=== PATIENT | female | born 1945 | race Caucasian/White ===

== ENCOUNTER 2020-08-07 18:18 | Inpatient (IN) | payer MEDICARE, OTHER ==
[~2020-08-07] VITALS: Ht 165.1 cm; Wt 99.4 kg
--- NOTE | 2020-08-07 18:27 | NUR ---
PT BIB EMS FOR ABDOMINAL PAIN, W N/V. STARTED TODAY. TENDER TO PALPITATION IN ALL QUADRENTS. DENIES CP OR SOB.
[2020-08-07] MEDS ORDERED: HYDROmorphone 1 MG/ML, 1ML INJ ONE (19:03)
[2020-08-07] MEDS ORDERED: ONDANSETRON 2MG/ML, 2ML ONE (19:03)
--- NOTE | 2020-08-07 19:10 | NUR ---
First contact with patient, pt c/o moderate abd discomfort and active n/v bile. IV patent from field, pt medicated with dilaudid 0.5 and zofran 4mg. Lab here drawing blood. Requested urine sample. POC discussed with patient and she agrees. On cont pulse ox, cr monitor, vss. AIDET provided. Addendum: 08/07/20 at 2245 by MIHAIEELamar 0.5mg dilaudid wasted at time of pull with LEANDER logan.
[2020-08-07 19:22] LABS: BASOPHILS % (AUTO) 0 % (0-1); EOSINOPHILS % (AUTO) 0 % (1-7); LYMPHOCYTES % (AUTO) 8 % (22-44); MEAN CORPUSCULAR HGB CONC 33.2 g/dL (32.4-35.8); MONOCYTES % (AUTO) 6 % (2-9); NEUTROPHILS % (AUTO) 86 % (42-75); PLATELET COUNT 342 x10^3/uL (130-400); RED BLOOD COUNT 4.28 x10^6/uL (3.82-5.3); RED CELL DISTRIBUTION WIDTH 13.6 % (9.6-15.2)
[2020-08-07] MEDS ORDERED: ONDANSETRON 2MG/ML, 2ML IVPush ONE (19:30)
[2020-08-07] MEDS ORDERED: HYDROmorphone 1 MG/ML, 1ML INJ IV ONE (19:30)
[2020-08-07 19:33] LABS: ALBUMIN 3.8 g/dL (3.4-5.0); ANION GAP 9 mmol/L (5-15); CALCIUM 9.3 mg/dL (8.5-10.1); CHLORIDE 114 mmol/L (98-107)
[2020-08-07 19:34] LABS: INTERNATIONAL NORMALIZED RATIO 2.98 (0.93-1.1); PROTHROMBIN TIME 30.3 Seconds (9.6-11.5)
[2020-08-07 19:39] LABS: ALANINE AMINOTRANSFERASE 26 U/L (12-78); ALKALINE PHOSPHATASE 90 U/L (45-117); BILIRUBIN,TOTAL 0.5 mg/dL (0.2-1.0); CREATININE 0.76 mg/dL (0.55-1.02); TROPONIN I < 0.015 ng/mL (0.000-0.045)
--- NOTE | 2020-08-07 19:39 | NUR ---
Pt placed on 2L o2 for periods hypoxia 2nd to dilaudid, pt states pain med and zofran have helped. Will continue to monitor.
--- NOTE | 2020-08-07 20:10 | NUR ---
Back from CT, pt with no new episodes of n/v pain controlled.
[2020-08-07] MEDS ORDERED: OMNIPAQUE 350 MG/ML, 100ML BOTTLE ONE (20:12)
--- NOTE | 2020-08-07 21:29 | NUR ---
Pt with severe deviated septum unable to pass NGT despite multiple techniques/attempts pt not able to tolerate. Abortetd procedure.
[2020-08-07] MEDS ORDERED: SODIUM CHLORIDE 0.9% 1,000 ML IV ONE (21:30)
[2020-08-07] MEDS ORDERED: HYDROmorphone 1 MG/ML, 1ML INJ IVPush PRN (21:30)
[2020-08-07] MEDS ORDERED: ONDANSETRON 2MG/ML, 2ML IVPush PRN (21:30)
--- NOTE | 2020-08-07 21:38 | NUR ---
Informed Niurka TABOR on surgery re: inability to pass NGT. Also informed hospitalist. Pt to be tx to floor with all belongings.
[2020-08-07] MEDS ORDERED: HYDROmorphone 2 MG/ML, 1ML IVPush PRN (22:30)
[2020-08-07] MEDS ORDERED: POTASSIUM CHLORIDE 20 MEQ in SODIUM CHLORIDE 0.45% 1,000 ML IV SCH (22:30)
[2020-08-07] MEDS: BISACODYL 10 MG SUPP PR SCH (22:30)
[2020-08-07] MEDS: TIMOLOL OPHTH 0.5%, 5ML EACHEYE SCH (22:30)
[2020-08-07] MEDS: LATANOPROST OPHTH 0.005%, 2.5ML EACHEYE SCH (22:30)
[2020-08-07 23:18] VITALS: BP 120/86
[2020-08-07 23:58] VITALS: BP 110/65
[2020-08-08] VITALS (12 sets, daily range): BP systolic 101–163; BP diastolic 62–92
[2020-08-08] MEDS ORDERED: TIMO1DRO6 OP (00:27)
[2020-08-08] MEDS ORDERED: LATA2.5D4 EACHEYE (00:27)
[2020-08-08] MEDS ORDERED: ROSU40TA22 PO (00:27)
[2020-08-08] MEDS ORDERED: WARF3TAB52 PO (00:27)
[2020-08-08] MEDS ORDERED: FLUO20TA25 PO (00:27)
[2020-08-08] MEDS ORDERED: LEVO137T3 PO (00:27)
[2020-08-08] MEDS ORDERED: LEVO125T5 PO (00:27)
[2020-08-08] MEDS ORDERED: OMEP20TA9 PO (00:27)
[2020-08-08] MEDS ORDERED: OXYB10TA26 PO (00:27)
[2020-08-08] MEDS: ONDANSETRON 2MG/ML, 2ML IVPush PRN ×4 (01:02→23:45)
[2020-08-08 06:15] LABS: BASOPHILS % (AUTO) 1 % (0-1); EOSINOPHILS % (AUTO) 0 % (1-7); LYMPHOCYTES % (AUTO) 8 % (22-44); MEAN CORPUSCULAR HGB CONC 33.3 g/dL (32.4-35.8); MONOCYTES % (AUTO) 9 % (2-9); NEUTROPHILS % (AUTO) 83 % (42-75); PLATELET COUNT 328 x10^3/uL (130-400); RED BLOOD COUNT 4.03 x10^6/uL (3.82-5.3); RED CELL DISTRIBUTION WIDTH 13.5 % (9.6-15.2)
[2020-08-08 06:22] LABS: INTERNATIONAL NORMALIZED RATIO 2.03 (0.93-1.1)
[2020-08-08 06:24] LABS: ANION GAP 9 mmol/L (5-15); CALCIUM 9.5 mg/dL (8.5-10.1); CHLORIDE 110 mmol/L (98-107); CREATININE 0.83 mg/dL (0.55-1.02)
[2020-08-08] MEDS: LEVOTHYROXINE 100 MCG INJ IVPush SCH (07:44)
[2020-08-08] MEDS: TIMOLOL OPHTH 0.5%, 5ML EACHEYE SCH ×2 (07:45→20:14)
[2020-08-08] MEDS: BISACODYL 10 MG SUPP PR SCH (12:00)
[2020-08-08] MEDS: D5%-0.45NACL+KCL 40MEQ 1,000 ML IV SCH (12:56)
[2020-08-08 14:41] LABS: MICROSCOPIC INDICATED
[2020-08-08] MEDS: CEFTRIAXONE 1,000 MG in DEXTROSE 5% 50 ML IVPB SCH (16:34)
[2020-08-08] MEDS: LATANOPROST OPHTH 0.005%, 2.5ML EACHEYE SCH (20:15)
[2020-08-08] MEDS: OXYMETAZOLINE NASAL SPRAY 0.05%, 15ML NAS PRN (20:33)
[2020-08-09 01:24] VITALS: BP 148/79
[2020-08-09] MEDS ORDERED: LORazepam 2 MG/ML, 1ML IVPush ONE (02:00)
[2020-08-09] MEDS: D5%-0.45NACL+KCL 40MEQ 1,000 ML IV SCH ×2 (05:26→17:35)
[2020-08-09 06:13] LABS: BASOPHILS % (AUTO) 0 % (0-1); EOSINOPHILS % (AUTO) 0 % (1-7); LYMPHOCYTES % (AUTO) 10 % (22-44); MEAN CORPUSCULAR HEMOGLOBIN 33.3 pg (27.0-34.8); MEAN CORPUSCULAR HGB CONC 33.9 g/dL (32.4-35.8); MEAN PLATELET VOLUME 9.6 fL (7.4-10.4); MONOCYTES % (AUTO) 10 % (2-9); NEUTROPHILS % (AUTO) 79 % (42-75); PLATELET COUNT 309 x10^3/uL (130-400); RED BLOOD COUNT 3.99 x10^6/uL (3.82-5.3); RED CELL DISTRIBUTION WIDTH 13.2 % (9.6-15.2)
[2020-08-09 06:19] LABS: ANION GAP 5 mmol/L (5-15); CALCIUM 9.1 mg/dL (8.5-10.1); CHLORIDE 108 mmol/L (98-107); CREATININE 0.73 mg/dL (0.55-1.02)
[2020-08-09] MEDS: LEVOTHYROXINE 100 MCG INJ IVPush SCH (07:31)
[2020-08-09] MEDS: TIMOLOL OPHTH 0.5%, 5ML EACHEYE SCH ×2 (07:31→21:45)
[2020-08-09] MEDS: KETOROLAC 30 MG/1 ML IVPush SCH ×3 (07:31→19:47)
[2020-08-09] MEDS: BISACODYL 10 MG SUPP PR SCH (07:53)
[2020-08-09 09:07] VITALS: BP 119/78
[2020-08-09] MEDS: OXYMETAZOLINE NASAL SPRAY 0.05%, 15ML NAS PRN (13:20)
[2020-08-09] MEDS: ONDANSETRON 2MG/ML, 2ML IVPush PRN (13:25)
[2020-08-09 13:26] LABS: INTERNATIONAL NORMALIZED RATIO 2.5 (0.93-1.1); PROTHROMBIN TIME 25.6 Seconds (9.6-11.5)
[2020-08-09 15:53] VITALS: BP 123/67
[2020-08-09] MEDS: CEFTRIAXONE 1,000 MG in DEXTROSE 5% 50 ML IVPB SCH (16:00)
[2020-08-09] MEDS: PROMETHAZINE 25 MG/ML, 1ML IM PRN (17:34)
[2020-08-09 20:42] VITALS: BP 118/63
[2020-08-09] MEDS: LATANOPROST OPHTH 0.005%, 2.5ML EACHEYE SCH (21:45)
[2020-08-10] MEDS: KETOROLAC 30 MG/1 ML IVPush SCH ×4 (01:33→19:30)
[2020-08-10 02:32] VITALS: BP 101/61
[2020-08-10] MEDS: D5%-0.45NACL+KCL 40MEQ 1,000 ML IV SCH ×2 (03:19→14:44)
[2020-08-10 05:51] LABS: BASOPHILS % (AUTO) 0 % (0-1); EOSINOPHILS % (AUTO) 2 % (1-7); LYMPHOCYTES % (AUTO) 21 % (22-44); MEAN CORPUSCULAR HEMOGLOBIN 33.3 pg (27.0-34.8); MEAN CORPUSCULAR HGB CONC 33.7 g/dL (32.4-35.8); MEAN PLATELET VOLUME 9.4 fL (7.4-10.4); MONOCYTES % (AUTO) 12 % (2-9); NEUTROPHILS % (AUTO) 65 % (42-75); PLATELET COUNT 281 x10^3/uL (130-400); RED BLOOD COUNT 3.79 x10^6/uL (3.82-5.3); RED CELL DISTRIBUTION WIDTH 13.4 % (9.6-15.2)
[2020-08-10 05:53] LABS: INTERNATIONAL NORMALIZED RATIO 2.29 (0.93-1.1); PROTHROMBIN TIME 23.6 Seconds (9.6-11.5)
[2020-08-10 05:57] LABS: CHLORIDE 111 mmol/L (98-107)
[2020-08-10 06:01] LABS: ANION GAP 5 mmol/L (5-15); CALCIUM 8.4 mg/dL (8.5-10.1); CREATININE 0.62 mg/dL (0.55-1.02)
[2020-08-10 06:29] VITALS: BP 122/75
[2020-08-10] MEDS: TIMOLOL OPHTH 0.5%, 5ML EACHEYE SCH ×2 (07:45→20:45)
[2020-08-10] MEDS: LEVOTHYROXINE 100 MCG INJ IVPush SCH (07:45)
[2020-08-10] MEDS: BISACODYL 10 MG SUPP PR SCH (07:52)
[2020-08-10] MEDS ORDERED: PHYTONADIONE 10 MG/ML, 1ML IM ONE (12:00)
[2020-08-10] MEDS: OXYMETAZOLINE NASAL SPRAY 0.05%, 15ML NAS PRN (12:45)
[2020-08-10 12:53] VITALS: BP 153/83
[2020-08-10] MEDS: CEFTRIAXONE 1,000 MG in DEXTROSE 5% 50 ML IVPB SCH (16:07)
[2020-08-10 18:51] VITALS: BP 153/79
[2020-08-10] MEDS: LATANOPROST OPHTH 0.005%, 2.5ML EACHEYE SCH (20:47)
[2020-08-10] MEDS: ONDANSETRON 2MG/ML, 2ML IVPush PRN (21:26)
[2020-08-11] MEDS: D5%-0.45NACL+KCL 40MEQ 1,000 ML IV SCH ×2 (01:14→16:54)
[2020-08-11 01:20] VITALS: BP 142/82
[2020-08-11] MEDS: KETOROLAC 30 MG/1 ML IVPush SCH ×4 (01:34→19:36)
[2020-08-11 02:34] LABS: BASOPHILS % (AUTO) 0 % (0-1); EOSINOPHILS % (AUTO) 5 % (1-7); LYMPHOCYTES % (AUTO) 26 % (22-44); MEAN CORPUSCULAR HEMOGLOBIN 33.1 pg (27.0-34.8); MEAN CORPUSCULAR HGB CONC 33.4 g/dL (32.4-35.8); MEAN PLATELET VOLUME 9.4 fL (7.4-10.4); MONOCYTES % (AUTO) 11 % (2-9); NEUTROPHILS % (AUTO) 58 % (42-75); PLATELET COUNT 289 x10^3/uL (130-400); RED BLOOD COUNT 4.22 x10^6/uL (3.82-5.3); RED CELL DISTRIBUTION WIDTH 13.5 % (9.6-15.2)
[2020-08-11 02:44] LABS: ALANINE AMINOTRANSFERASE 28 U/L (12-78); ALBUMIN 3.2 g/dL (3.4-5.0); ANION GAP 5 mmol/L (5-15); CALCIUM 8.8 mg/dL (8.5-10.1); CHLORIDE 109 mmol/L (98-107); CREATININE 0.66 mg/dL (0.55-1.02); INTERNATIONAL NORMALIZED RATIO 1.36 (0.93-1.1); PROTHROMBIN TIME 14.3 Seconds (9.6-11.5)
[2020-08-11 02:47] LABS: ALKALINE PHOSPHATASE 74 U/L (45-117); BILIRUBIN,TOTAL 0.6 mg/dL (0.2-1.0); TOTAL PROTEIN 7.3 g/dL (6.4-8.2)
[2020-08-11 05:14] VITALS: BP 154/85
[2020-08-11 06:04] VITALS: BP 180/95
[2020-08-11] MEDS ORDERED: CHLORHEXIDINE 15 ML UDC ONE (06:08)
[2020-08-11] MEDS ORDERED: EPINEPHRINE 1 MG/ML, 1ML ONE (06:28)
[2020-08-11] MEDS ORDERED: BUPIVACAINE/PF 0.5% ONE (06:28)
[2020-08-11] MEDS ORDERED: FENTANYL PF 250 MCG/5ML ONE (06:51)
[2020-08-11] MEDS ORDERED: PROPOFOL 50 ML ONE ×2 (06:51→08:23)
[2020-08-11] MEDS ORDERED: CEFAZOLIN 1,000 MG ONE (07:26)
[2020-08-11] MEDS ORDERED: LABETALOL 5MG/ML, 20ML IV PRN (07:30)
[2020-08-11] MEDS ORDERED: EPHEDRINE 50 MG/ML, 1ML IM PRN (07:30)
[2020-08-11] MEDS ORDERED: OXYcodone 5 MG/5 ML ORAL.SOL UDC PO PRN (07:30)
[2020-08-11] MEDS ORDERED: HYDROmorphone 1 MG/ML, 1ML INJ IVPush PRN (07:30)
[2020-08-11] MEDS ORDERED: DIAZEPAM 5 MG/ML, 2ML IVPush PRN (07:30)
[2020-08-11] MEDS ORDERED: PROMETHAZINE 25 MG/ML, 1ML IVPush PRN (07:30)
[2020-08-11] MEDS ORDERED: DIPHENHYDRAMINE 50 MG/ML, 1ML IVPush PRN (07:30)
[2020-08-11] MEDS ORDERED: EPHEDRINE 50 MG/ML, 1ML IVPush PRN (07:30)
[2020-08-11] MEDS ORDERED: ONDANSETRON 2MG/ML, 2ML IVPush PRN (07:30)
[2020-08-11] MEDS ORDERED: BUPIVACAINE/PF-EPI 0.5% 1:200K INFIL ONE (07:41)
[2020-08-11] MEDS ORDERED: SUCCINYLCHOLINE 20 MG/ML, 10ML ONE (07:52)
[2020-08-11] MEDS ORDERED: KETOROLAC 30 MG/1 ML ONE (07:52)
[2020-08-11] MEDS ORDERED: DEXAMETHASONE 4 MG/ML, 5ML ONE (07:52)
[2020-08-11] MEDS ORDERED: ONDANSETRON 2MG/ML, 2ML ONE ×2 (07:52→09:57)
[2020-08-11] MEDS ORDERED: ROCURONIUM 10MG/ML,5ML ONE (07:52)
[2020-08-11] MEDS ORDERED: PROPOFOL 10 MG/ML, 20ML ONE (07:52)
[2020-08-11] MEDS: TIMOLOL OPHTH 0.5%, 5ML EACHEYE SCH ×2 (08:40→20:25)
[2020-08-11] MEDS: BISACODYL 10 MG SUPP PR SCH (08:41)
[2020-08-11] MEDS: LEVOTHYROXINE 100 MCG INJ IVPush SCH (08:41)
[2020-08-11] MEDS ORDERED: LABETALOL 5MG/ML, 20ML ONE (09:45)
[2020-08-11] MEDS ORDERED: FENTANYL PF 100 MCG/2ML ONE (09:54)
[2020-08-11] MEDS: FENTANYL PF 100 MCG/2ML IV PRN ×2 (09:59→10:45)
[2020-08-11] MEDS ORDERED: HYDROmorphone 1 MG/ML, 1ML INJ ONE (10:55)
[2020-08-11] MEDS ORDERED: METHOCARBAMOL 1,000 MG in DEXTROSE 5% 100 ML IV PRN (11:00)
[2020-08-11 12:01] VITALS: BP 101/60
[2020-08-11] MEDS: CEFTRIAXONE 1,000 MG in DEXTROSE 5% 50 ML IVPB SCH (15:22)
[2020-08-11] MEDS: OXYMETAZOLINE NASAL SPRAY 0.05%, 15ML NAS PRN (19:36)
[2020-08-11 19:44] VITALS: BP 115/72
[2020-08-11] MEDS: ONDANSETRON 2MG/ML, 2ML IVPush PRN (20:21)
[2020-08-11] MEDS: LATANOPROST OPHTH 0.005%, 2.5ML EACHEYE SCH (20:25)
[2020-08-11] MEDS ORDERED: HYDROmorphone 1 MG/ML, 1ML INJ IV ONE (23:30)
[2020-08-12] MEDS: KETOROLAC 30 MG/1 ML IVPush SCH ×4 (02:00→19:56)
[2020-08-12] MEDS: D5%-0.45NACL+KCL 40MEQ 1,000 ML IV SCH (03:17)
[2020-08-12 04:59] VITALS: BP 105/69
[2020-08-12 05:41] LABS: BASOPHILS % (AUTO) 0 % (0-1); EOSINOPHILS % (AUTO) 1 % (1-7); LYMPHOCYTES % (AUTO) 20 % (22-44); MEAN CORPUSCULAR HEMOGLOBIN 33.5 pg (27.0-34.8); MEAN CORPUSCULAR HGB CONC 33.6 g/dL (32.4-35.8); MEAN PLATELET VOLUME 9.8 fL (7.4-10.4); MONOCYTES % (AUTO) 14 % (2-9); NEUTROPHILS % (AUTO) 65 % (42-75); PLATELET COUNT 286 x10^3/uL (130-400); RED BLOOD COUNT 4.21 x10^6/uL (3.82-5.3); RED CELL DISTRIBUTION WIDTH 13.5 % (9.6-15.2)
[2020-08-12 05:50] LABS: ANION GAP 5 mmol/L (5-15); CHLORIDE 107 mmol/L (98-107); CREATININE 1.15 mg/dL (0.55-1.02)
[2020-08-12 07:16] VITALS: BP 118/74
[2020-08-12] MEDS: LEVOTHYROXINE 100 MCG INJ IVPush SCH (07:35)
[2020-08-12] MEDS: BISACODYL 10 MG SUPP PR SCH (07:36)
[2020-08-12] MEDS: TIMOLOL OPHTH 0.5%, 5ML EACHEYE SCH ×2 (07:37→19:56)
[2020-08-12] MEDS: OXYMETAZOLINE NASAL SPRAY 0.05%, 15ML NAS PRN ×2 (07:46→20:02)
[2020-08-12] MEDS ORDERED: HYDROmorphone 1 MG/ML, 1ML INJ IV PRN (08:00)
[2020-08-12] MEDS: SODIUM CHLORIDE 0.9% 1,000 ML IV SCH ×2 (08:00→22:46)
[2020-08-12] MEDS ORDERED: METHOCARBAMOL 500 MG TABLET PO PRN (10:00)
[2020-08-12 13:17] VITALS: BP 130/81
[2020-08-12] MEDS: CEFTRIAXONE 1,000 MG in DEXTROSE 5% 50 ML IVPB SCH (16:03)
[2020-08-12 19:23] VITALS: BP 133/68
[2020-08-12] MEDS: LATANOPROST OPHTH 0.005%, 2.5ML EACHEYE SCH (19:56)
[2020-08-12] MEDS: PROMETHAZINE 25 MG/ML, 1ML IM PRN (22:55)
[2020-08-13 00:18] VITALS: BP 144/80
[2020-08-13] MEDS: KETOROLAC 30 MG/1 ML IVPush SCH ×4 (01:32→19:45)
[2020-08-13] MEDS: ONDANSETRON 2MG/ML, 2ML IVPush PRN (04:25)
[2020-08-13 06:40] LABS: CALCIUM 8.5 mg/dL (8.5-10.1); CHLORIDE 112 mmol/L (98-107)
[2020-08-13 06:42] LABS: ANION GAP 8 mmol/L (5-15); CREATININE 0.87 mg/dL (0.55-1.02)
[2020-08-13 06:51] VITALS: BP 142/74
[2020-08-13] MEDS: LEVOTHYROXINE 100 MCG INJ IVPush SCH (07:46)
[2020-08-13] MEDS: TIMOLOL OPHTH 0.5%, 5ML EACHEYE SCH ×2 (07:46→19:46)
[2020-08-13] MEDS: BISACODYL 10 MG SUPP PR SCH (07:47)
[2020-08-13] MEDS: OXYMETAZOLINE NASAL SPRAY 0.05%, 15ML NAS PRN ×2 (10:40→22:46)
[2020-08-13] MEDS ORDERED: ENOXAPARIN 40 MG/0.4 ML SQ SCH (11:30)
[2020-08-13 12:57] VITALS: BP 115/63
[2020-08-13 19:44] VITALS: BP 112/61
[2020-08-13] MEDS: LATANOPROST OPHTH 0.005%, 2.5ML EACHEYE SCH (19:46)
[2020-08-14] MEDS: KETOROLAC 30 MG/1 ML IVPush SCH (01:36)
[2020-08-14 01:38] VITALS: BP 121/76
[2020-08-14] MEDS: OMEPRAZOLE 20 MG CAPSULE.DR PO SCH (05:40)
[2020-08-14] MEDS: LEVOTHYROXINE 137 MCG TABLET PO SCH (05:40)
[2020-08-14 06:45] VITALS: BP 130/70
[2020-08-14] MEDS: TIMOLOL OPHTH 0.5%, 5ML EACHEYE SCH ×2 (08:45→20:48)
[2020-08-14] MEDS: ATORVASTATIN 80 MG TABLET PO SCH (08:45)
[2020-08-14] MEDS: BISACODYL 10 MG SUPP PR SCH (08:45)
[2020-08-14] MEDS: FLUOXETINE HCL 20 MG CAPSULE PO SCH (08:45)
[2020-08-14] MEDS ORDERED: ACETAMINOPHEN 325 MG TABLET PO PRN (10:30)
[2020-08-14] MEDS ORDERED: POLYETHYLENE GLYCOL 17 GM PACKET PO PRN (10:30)
[2020-08-14 11:01] LABS: INTERNATIONAL NORMALIZED RATIO 1.04 (0.93-1.1); PROTHROMBIN TIME 11.1 Seconds (9.6-11.5)
[2020-08-14] MEDS: SENNA/DOCUSATE TABLET PO SCH (11:53)
[2020-08-14] MEDS: HYDROcodone/APAP 5/325 TABLET PO PRN ×2 (11:54→20:49)
[2020-08-14 12:52] VITALS: BP 114/76
[2020-08-14] MEDS ORDERED: WARFARIN 3 MG TABLET PO-COUM SCH (17:00)
[2020-08-14] MEDS ORDERED: WARFARIN 5 MG TABLET PO-COUM ONE (18:00)
[2020-08-14 19:19] VITALS: BP 146/72
[2020-08-14] MEDS: LATANOPROST OPHTH 0.005%, 2.5ML EACHEYE SCH (20:48)
[2020-08-15 00:52] VITALS: BP 118/61
[2020-08-15] MEDS: HYDROcodone/APAP 5/325 TABLET PO PRN ×3 (04:42→17:32)
[2020-08-15 06:12] LABS: INTERNATIONAL NORMALIZED RATIO 1.05 (0.93-1.1); PROTHROMBIN TIME 11.2 Seconds (9.6-11.5)
[2020-08-15] MEDS: OMEPRAZOLE 20 MG CAPSULE.DR PO SCH (06:14)
[2020-08-15] MEDS: LEVOTHYROXINE 125 MCG TABLET PO SCH (06:14)
[2020-08-15 08:20] VITALS: BP 122/67
[2020-08-15] MEDS: FLUOXETINE HCL 20 MG CAPSULE PO SCH (08:57)
[2020-08-15] MEDS: TIMOLOL OPHTH 0.5%, 5ML EACHEYE SCH ×2 (08:57→20:28)
[2020-08-15] MEDS: ATORVASTATIN 80 MG TABLET PO SCH (08:57)
[2020-08-15] MEDS: BISACODYL 10 MG SUPP PR SCH (08:57)
[2020-08-15] MEDS: SENNA/DOCUSATE TABLET PO SCH (08:57)
[2020-08-15 12:16] VITALS: BP 123/63
[2020-08-15] MEDS ORDERED: WARFARIN 5 MG TABLET PO-COUM ONE (16:00)
[2020-08-15 19:40] VITALS: BP 110/74
[2020-08-15] MEDS: CALCIUM CARBONATE 500 MG TAB.CHEW PO PRN (20:27)
[2020-08-15] MEDS: LATANOPROST OPHTH 0.005%, 2.5ML EACHEYE SCH (20:28)
[2020-08-16 01:43] VITALS: BP 130/72
[2020-08-16] MEDS: HYDROcodone/APAP 5/325 TABLET PO PRN ×2 (01:56→13:37)
[2020-08-16] MEDS: ONDANSETRON 2MG/ML, 2ML IVPush PRN (01:56)
[2020-08-16] MEDS: LEVOTHYROXINE 137 MCG TABLET PO SCH (06:00)
[2020-08-16] MEDS ORDERED: LEVOTHYROXINE 137 MCG TABLET PO SCH (06:00)
[2020-08-16] MEDS: OMEPRAZOLE 20 MG CAPSULE.DR PO SCH (06:11)
[2020-08-16 07:33] VITALS: BP 121/73
[2020-08-16 07:39] LABS: INTERNATIONAL NORMALIZED RATIO 1.08 (0.93-1.1); PROTHROMBIN TIME 11.5 Seconds (9.6-11.5)
[2020-08-16] MEDS: SENNA/DOCUSATE TABLET PO SCH (09:00)
[2020-08-16] MEDS: BISACODYL 10 MG SUPP PR SCH (09:00)
[2020-08-16] MEDS: ATORVASTATIN 80 MG TABLET PO SCH (09:19)
[2020-08-16] MEDS: FLUOXETINE HCL 20 MG CAPSULE PO SCH (09:19)
[2020-08-16] MEDS: TIMOLOL OPHTH 0.5%, 5ML EACHEYE SCH ×2 (11:20→20:01)
[2020-08-16 13:14] VITALS: BP 116/66
[2020-08-16] MEDS ORDERED: WARFARIN 3 MG TABLET PO-COUM ONE (18:00)
[2020-08-16 18:51] VITALS: BP 106/65
[2020-08-16] MEDS: CALCIUM CARBONATE 500 MG TAB.CHEW PO PRN (20:00)
[2020-08-16] MEDS: LATANOPROST OPHTH 0.005%, 2.5ML EACHEYE SCH (20:01)
[2020-08-17 01:05] VITALS: BP 122/67
[2020-08-17] MEDS: HYDROcodone/APAP 5/325 TABLET PO PRN ×2 (03:50→20:55)
[2020-08-17] MEDS: CALCIUM CARBONATE 500 MG TAB.CHEW PO PRN (03:50)
[2020-08-17] MEDS: OMEPRAZOLE 20 MG CAPSULE.DR PO SCH (05:36)
[2020-08-17] MEDS: LEVOTHYROXINE 125 MCG TABLET PO SCH (05:36)
[2020-08-17 05:54] LABS: INTERNATIONAL NORMALIZED RATIO 1.27 (0.93-1.1); PROTHROMBIN TIME 13.4 Seconds (9.6-11.5)
[2020-08-17 06:43] VITALS: BP 116/53
[2020-08-17 08:45] LABS: BASOPHILS % (AUTO) 0 % (0-1); EOSINOPHILS % (AUTO) 5 % (1-7); LYMPHOCYTES % (AUTO) 38 % (22-44); MEAN CORPUSCULAR HGB CONC 33.3 g/dL (32.4-35.8); MEAN PLATELET VOLUME 8.2 fL (7.4-10.4); MONOCYTES % (AUTO) 13 % (2-9); NEUTROPHILS % (AUTO) 45 % (42-75); PLATELET COUNT 363 x10^3/uL (130-400); RED BLOOD COUNT 3.41 x10^6/uL (3.82-5.3); RED CELL DISTRIBUTION WIDTH 13.4 % (9.6-15.2)
[2020-08-17] MEDS: BISACODYL 10 MG SUPP PR SCH (09:00)
[2020-08-17 09:05] LABS: ANION GAP 4 mmol/L (5-15); CALCIUM 8.4 mg/dL (8.5-10.1); CHLORIDE 110 mmol/L (98-107); CREATININE 0.53 mg/dL (0.55-1.02)
[2020-08-17] MEDS: SENNA/DOCUSATE TABLET PO SCH (09:51)
[2020-08-17] MEDS: ATORVASTATIN 80 MG TABLET PO SCH (09:52)
[2020-08-17] MEDS: HEPARIN 5,000 UNITS/ML, 1ML SQ SCH ×2 (09:52→17:53)
[2020-08-17] MEDS: FLUOXETINE HCL 20 MG CAPSULE PO SCH (09:52)
[2020-08-17] MEDS: TIMOLOL OPHTH 0.5%, 5ML EACHEYE SCH ×2 (09:59→20:55)
[2020-08-17 12:58] VITALS: BP 149/79
[2020-08-17] MEDS ORDERED: WARFARIN 7.5 MG TABLET PO-COUM ONE (18:00)
[2020-08-17 18:49] VITALS: BP 135/84
[2020-08-17] MEDS: LATANOPROST OPHTH 0.005%, 2.5ML EACHEYE SCH (20:55)
[2020-08-18] MEDS: HEPARIN 5,000 UNITS/ML, 1ML SQ SCH ×2 (00:20→09:39)
[2020-08-18 00:28] VITALS: BP 143/84
[2020-08-18] MEDS: OMEPRAZOLE 20 MG CAPSULE.DR PO SCH (05:48)
[2020-08-18] MEDS: LEVOTHYROXINE 137 MCG TABLET PO SCH (05:51)
[2020-08-18 06:47] LABS: INTERNATIONAL NORMALIZED RATIO 1.6 (0.93-1.1); PROTHROMBIN TIME 16.7 Seconds (9.6-11.5)
[2020-08-18 08:25] VITALS: BP 129/80
[2020-08-18] MEDS: BISACODYL 10 MG SUPP PR SCH (09:00)
[2020-08-18] MEDS: SENNA/DOCUSATE TABLET PO SCH (09:00)
[2020-08-18] MEDS: ATORVASTATIN 80 MG TABLET PO SCH (09:38)
[2020-08-18] MEDS: FLUOXETINE HCL 20 MG CAPSULE PO SCH (09:38)
[2020-08-18] MEDS: TIMOLOL OPHTH 0.5%, 5ML EACHEYE SCH (09:43)
[2020-08-18] MEDS ORDERED: BISA10SU4 PR (11:49)
[2020-08-18] MEDS ORDERED: POLY17PO5 PO (11:49)
[2020-08-18] MEDS ORDERED: HYDR-2214 PO (11:49)
[2020-08-18] MEDS ORDERED: OXYM15SP8 NAS (11:49)
[2020-08-18] MEDS ORDERED: SENN-211 PO (11:49)
[2020-08-18] MEDS ORDERED: HEPA50002 SQ (11:49)
[2020-08-18] MEDS ORDERED: WARF4TAB65 PO (11:49)
[2020-08-18] MEDS: ONDANSETRON 2MG/ML, 2ML IVPush PRN (12:18)
[2020-08-18] MEDS: HYDROcodone/APAP 5/325 TABLET PO PRN (12:19)
[2020-08-18 13:16] VITALS: BP 133/78
[2020-08-18] MEDS ORDERED: WARFARIN 3 MG TABLET PO-COUM ONE (18:00)
== END 2020-08-18 15:56 | DRG 336 ==
LOC: ED 19:35 → EDIP 21:11 → 3N 22:08
PROVIDERS: ADMIT Student in an Organized Health Care Education/Training Program; ATTEND Internal Medicine
PROC: 0D9670Z Drainage of Stomach with Drainage Device, Via Natural or Artificial Opening (ICD-10-PCS; 2020-08-07)
PROC: 30233K1 Transfusion of Nonautologous Frozen Plasma into Peripheral Vein, Percutaneous Approach (ICD-10-PCS; 2020-08-08)
PROC: 0DN80ZZ Release Small Intestine, Open Approach (ICD-10-PCS; 2020-08-11)
PROC: 0DJD4ZZ Inspection of Lower Intestinal Tract, Percutaneous Endoscopic Approach (ICD-10-PCS; principal; 2020-08-11 07:00)
PROC: 0DNW0ZZ Release Peritoneum, Open Approach (ICD-10-PCS; 2020-08-11 07:00)
DX: K56.52 Intestinal adhesions [bands] with complete obstruction (principal); N39.0 Urinary tract infection, site not specified; B96.20 Unspecified Escherichia coli [E. coli] as the cause of diseases classified elsewhere; E03.9 Hypothyroidism, unspecified; E78.5 Hyperlipidemia, unspecified; E87.6 Hypokalemia; F39 Unspecified mood [affective] disorder; G89.29 Other chronic pain; H40.9 Unspecified glaucoma; Z79.01 Long term (current) use of anticoagulants; Z86.711 Personal history of pulmonary embolism; Z86.718 Personal history of other venous thrombosis and embolism; Z90.81 Acquired absence of spleen; Z96.653 Presence of artificial knee joint, bilateral; M54.2 Cervicalgia; Z20.822 Contact with and (suspected) exposure to COVID-19; Z88.5 Allergy status to narcotic agent; E66.9 Obesity, unspecified; Z68.36 Body mass index [BMI] 36.0-36.9, adult; D72.829 Elevated white blood cell count, unspecified; Z53.31 Laparoscopic surgical procedure converted to open procedure
CPT/HCPCS: 36415; 74018; 74177; 74250; 80048; 80053; 81001; 83690; 83735; 84100; 84484; 85025; 85610; 86850; 86870; 86900; 86902; 86922; 86923; 87086; 87186; 87635; 93005; 96374; 96375; G0378; J0171; J0690; J0696; J1100; J1170; J1644; J1650; J1885; J2405; J2550; J2704; J3010; J3430; J3480; Q9967; C1765; J0330; J2060; J2800; J7030; P9017